=== PATIENT | male | born 1980 | race Caucasian/White ===

== ENCOUNTER 2017-06-22 00:32 | Inpatient (IN) ==
[2017-06-22] MEDS ORDERED: Haloperidol Lactate 5 MG/ML VIAL IM PRN (00:49)
[2017-06-22] MEDS ORDERED: *HR* LORazepam 1 MG TABLET PO PRN (00:49)
[2017-06-22] MEDS ORDERED: Mag Hydrox/Al Hydrox/Simeth 30 ML UDC PO PRN (00:49)
[2017-06-22] MEDS ORDERED: *HR* LORazepam 2 MG/ML VIAL IM PRN (00:49)
[2017-06-22] MEDS ORDERED: hydrOXYzine pamoate 25 MG CAPSULE PO PRN (00:49)
[2017-06-22] MEDS ORDERED: MOM Conc 10 ML UD.LIQ PO PRN (00:49)
[2017-06-22] MEDS ORDERED: Ibuprofen 400 MG TABLET PO PRN (00:49)
[2017-06-22] MEDS ORDERED: traZODone 50 MG TABLET PO PRN (00:49)
[2017-06-22] MEDS: Nicotine 14 MG PATCH.TD24 TD SCH (09:26)
--- NOTE | 2017-06-22 10:55 | Psychiatry History & Physical ---
Date of Encounter: 06/22/17 Time of Encounter: 10:00 History of Present Illness Patient Stated Chief Complaint: Suicidal ideation Medicare Admission Attestation: For traditional Medicare patients the provided hospital inpatient services are reasonable and necessary and in the case of services not specified as inpatient -only under 42 CFR 419.22 (n), that they are appropriately provided as inpatient services in accordance 42 CFR 412.3. For Critical Access Hospital the patient may reasonably be expected to be discharged or transferred to a hospital within 96 hours after admission to the Critical Access Hospital. Admitted From: Hospital to Hospital Transfer ([place] emergency department) History of Present Illness: Mr. Méndez is a 36 year old male admitted from [place] emergency department for suicidal ideation. Patient had for the suicide with plans to run his tractor inside the shed to kill himself with carbon monoxide. Patient reports he started having depressive and suicidal thoughts a year and half ago when his girlfriend broke up with him now they are back together and his son 3 years old is with him and see him every day. Patient was seen by psychiatrists and given medication jeweling this past several months including Zoloft Risperdal and lithium in addition to Keppra for seizure disorder and Tenex and trazodone. Patient feels that without this stressful situation he should feel better but he is not happy and he complained of hypersomnia and low energy and lack of motivation no sense of pleasure and lack of interest in activities. Currently he denied any use of drugs or smoking. He is interested in what to "detox to get off all his medication to find out if he can manage better without medication. I had a long discussion with him regarding tapering off medication safely in the hospital and possible substitution of 1 medication with another to accomplish his treatments goals. He is agreeable to the plan. He denied any past suicide attempts and he had a remote hospitalization in the past. Past Med Surg Social Fam HX - Past Medical History Medical history: migraine, seizures - Past Psychiatric History Psychiatric history: Reports: anxiety, depression, previous psychiatric hospitalization. Denies: prior suicide attempt Past psychiatric history details: Outpatient treatment at [facility] and one hospitalization. Family psychiatric history: Unknown Family History of Suicide: Unknown - Social History Smoking Status: Never smoker Smokeless Tobacco Status: Yes Alcohol use: rarely Drug use: none Medications & Allergies Guanfacine [Tenex] 1 mg PO DAILY 06/21/17 [History] LevETIRAcetam [Keppra] 500 mg PO BID 06/21/17 [History] [place] Carbonate 300 mg PO TID 06/21/17 [History] RisperiDONE [Risperdal] 1 mg PO HS 06/21/17 [History] Sertraline [Zoloft] 150 mg PO DAILY 06/21/17 [History] traZODone [TraZODone] 50 mg PO HS 06/22/17 [History] 3 Allergy/AdvReac Type Severity Reaction Status Date / Time No Known Allergies Allergy Verified 06/21/17 19:30 Review of Systems Psychiatric: Reports: depression, anxiety, abnormal sleep pattern, suicidal ideation, anhedonia Exam - HEENT Head exam IM: Present: atraumatic Eye exam IM: Present: EOMI, normal appearance, PERRL ENT exam IM: Present: normal exam - Neurological Neurological exam: Present: CN II-XII intact - Respiratory Respiratory exam IM: Present: CTAB - GI/Abdominal GI/Abdominal exam IM: Present: normal bowel sounds, soft. Absent: tenderness - Extremities Extremities exam IM: Present: full ROM - Skin Skin exam IM: Present: dry, warm - Constitutional Vitals: Temp Pulse Resp BP 98.4 F 60 18 124/86 06/22/17 09:00 06/22/17 09:00 06/22/17 09:00 06/22/17 09:00 General appearance: age & developmentally appropriate, well-groomed, well- nourished, thin - Musculoskeletal Gait: normal Station: relaxed Strength & Tone: normal for patient - Psychiatric Patient Orientation: Yes Person, Yes Time, Yes Place Level of alertness: Alert Behavior: cooperative, nervous, restless Psychomotor activity: Normal Eye Contact: Maintains Eye Contact Mood Description: Euthymic/stable, Anxious Affect description: congruent with mood, full range Speech Volume: Normal Speech pattern: normal rate, normal rhythm, normal tone, fluent, spontaneous Language & Vocabulary: consistent with education Thought Process: Linear, Goal Oriented Thought Content: Yes Suicidal ideation, No Homicidal ideation, No Overt delusions Perceptual Disturbances: No Auditory hallucinations, No Visual hallucinations Attention Span Ability: Capable of Focused Attention Memory Description: Grossly Intact Patient Reliability: Reliable Historian Fund of knowledge: Yes abstraction ability, Yes average, Yes aware of current events Intelligence Estimate: Average Judgment: Limited Insight: Partial Assessment and Plan (1) Depression Current visit: No Status: Acute Plan: Admit inpatient for safety and stabilization, Close observation, Suicide Precautions per unit protocol, Encourage participation in unit milieu, Group Therapy, Monitor sleep, Monitor appetite Additional Plan: Discussed with patient treatment plan to taper off medication in a stepwise manner and monitor his response to the changes to stabilize his mood and address safety issues. Medication changes as per orders. Risks, benefits, side effects, alternatives discussed w/pt: Yes Patient agreeable to treatment: Yes Estimated Length of Stay (Days): 5 Qualifiers: Depression Type: major depressive disorder Major depression recurrence: recurrent Active/Remission status: currently active Psychotic features: without psychotic features Qualified Code(s): F33.2 - Major depressive disorder, recurrent severe without psychotic features
[2017-06-22] MEDS ORDERED: risperiDONE 1 MG TABLET PO SCH (21:00)
[2017-06-22] MEDS: levETIRAcetam 250 MG TABLET PO SCH (21:25)
[2017-06-22] MEDS: traZODone 50 MG TABLET PO SCH (21:25)
[2017-06-23] MEDS: levETIRAcetam 250 MG TABLET PO SCH ×2 (08:55→21:52)
[2017-06-23] MEDS: Nicotine 14 MG PATCH.TD24 TD SCH (08:56)
--- NOTE | 2017-06-23 11:32 | Psychiatry Progress Note ---
Date of Encounter: 06/23/17 Time of Encounter: 11:00 Subjective Interval history: Patient seen for follow-up. Case discussed with nursing staff. Patient tolerated medication changes and reported good night sleep. He is anxious to be discharged and at the same time he wants medication changes done fast. I educated him repeatedly about safe medication changes plan and he is agreeable. He tell me he is anxious to get started on a new job next week. He reported suicidal ideation to nursing staff. He is anxious and guarded. Review of Systems Psychiatric: Reports: depression, anxiety, abnormal sleep pattern, suicidal ideation, anhedonia Results - Vital Signs Vital Signs: Temp Pulse Resp BP 97.0 F L 67 16 124/76 06/23/17 09:00 06/23/17 09:00 06/23/17 09:00 06/23/17 09:00 Assessment and Plan (1) Depression Current visit: No Status: Acute Risks, benefits, side effects, alternatives discussed w/pt: Yes Patient agreeable to treatment: Yes Qualifiers: Depression Type: major depressive disorder Major depression recurrence: recurrent Active/Remission status: currently active Psychotic features: without psychotic features Qualified Code(s): F33.2 - Major depressive disorder, recurrent severe without psychotic features Consult Discharge Plan - Plan Referrals: [facility] Counseling Psych Services [Outside] - 06/27/17 10:30 am (The above appointment is with Missy for outpatient mental health counseling services. You will also see Js Beltran for outpatient psychiatric assessment and medication management services in the same office, and on the same day, 2017 at 11:45 AM. ) Psychiatry Exam - Constitutional Vitals: Temp Pulse Resp BP 97.0 F L 67 16 124/76 06/23/17 09:00 06/23/17 09:00 06/23/17 09:00 06/23/17 09:00 General appearance: age & developmentally appropriate, well-groomed, well- nourished - Musculoskeletal Gait: normal Station: relaxed Strength & Tone: normal for patient - Psychiatric Patient Orientation: Yes Person, Yes Time, Yes Place Level of alertness: Alert Behavior: cooperative, anxious, guarded Psychomotor activity: Normal Eye Contact: Maintains Eye Contact Mood Description: Euthymic/stable, Anxious Affect description: congruent with mood, constricted Speech Volume: Normal Speech pattern: normal rate, normal rhythm, normal tone, fluent, spontaneous Language & Vocabulary: consistent with education Thought Process: Linear, Goal Oriented Thought Content: Yes Suicidal ideation, No Homicidal ideation, No Overt delusions Perceptual Disturbances: No Auditory hallucinations, No Visual hallucinations Attention Span Ability: Capable of Focused Attention Memory Description: Grossly Intact Patient Reliability: Reliable Historian Fund of knowledge: Yes abstraction ability, Yes aware of current events Intelligence Estimate: Average Judgment: Limited Insight: Partial
[2017-06-23] MEDS: Venlafaxine XR (24 HR) 75 MG CAP.ER.24H PO SCH (11:58)
[2017-06-23] MEDS: traZODone 50 MG TABLET PO SCH (21:52)
[2017-06-24] MEDS: Nicotine 14 MG PATCH.TD24 TD SCH (08:20)
[2017-06-24] MEDS: Venlafaxine XR (24 HR) 75 MG CAP.ER.24H PO SCH (08:21)
[2017-06-24] MEDS: levETIRAcetam 250 MG TABLET PO SCH (08:21)
[2017-06-24 10:15] VITALS: BP 107/75
--- NOTE | 2017-06-24 11:45 | Discharge Summary ---
Date of Encounter: 06/24/17 Time of Encounter: 11:41 Diagnosis - Discharge Diagnosis (1) Depression Status: Acute Qualifiers: Depression Type: major depressive disorder Major depression recurrence: recurrent Active/Remission status: currently active Psychotic features: without psychotic features Qualified Code(s): F33.2 - Major depressive disorder, recurrent severe without psychotic features Medications - Discharge Medications Prescriptions: Venlafaxine XR (24 HR) [Effexor XR] 75 mg PO DAILY #30 cap.er.24h Guanfacine [Tenex] 1 mg PO DAILY 06/21/17 [History] LevETIRAcetam [Keppra] 500 mg PO BID 06/21/17 [History] traZODone [TraZODone] 50 mg PO HS 06/22/17 [History] Sertraline [Zoloft] 50 mg PO DAILY tablet 06/24/17 [Rx] Venlafaxine XR (24 HR) [Effexor XR] 75 mg PO DAILY #30 cap.er.24h 06/24/17 [Rx] 3 Allergy/AdvReac Type Severity Reaction Status Date / Time No Known Allergies Allergy Verified 06/21/17 19:30 Provider Date of admission: 06/22/17 00:32 Primary care physician: PCP NONE Discharging clinician: Deng Moreno Psychiatry Exam - Constitutional Vitals: Temp Pulse Resp BP 98.4 F 86 16 107/75 06/24/17 09:00 06/24/17 09:00 06/24/17 09:00 06/24/17 09:00 General appearance: age & developmentally appropriate, well-groomed, well- nourished - Musculoskeletal Gait: normal Station: relaxed Strength & Tone: normal for patient - Psychiatric Patient Orientation: Yes Person, Yes Time, Yes Place Level of alertness: Alert Behavior: calm, cooperative Psychomotor activity: Normal Eye Contact: Maintains Eye Contact Mood Description: Euthymic/stable Affect description: congruent with mood, full range Speech Volume: Normal Speech pattern: normal rate, normal rhythm, normal tone, fluent, spontaneous Language & Vocabulary: consistent with education Thought Process: Linear, Goal Oriented Thought Content: No Suicidal ideation, No Homicidal ideation, No Overt delusions Perceptual Disturbances: No Auditory hallucinations, No Visual hallucinations Attention Span Ability: Capable of Focused Attention Memory Description: Grossly Intact Patient Reliability: Reliable Historian Fund of knowledge: Yes abstraction ability, Yes aware of current events Intelligence Estimate: Average Judgment: Limited Insight: Partial Hospital Course Hospital course: Mr. Méndez is a 36 year old male admitted for suicidal ideation. For details of the admission please see H&P On the unit the patient was showing an anxiety about his medication, he was interested in reducing his medication and felt they were not effective. I reviewed his medication and work with him on stepwise medication adjustments. Started with discontinue with discontinuation of lithium followed by tapering off Risperdal and reducing Zoloft to 50 mg daily. Started him on Effexor XR 75 mg daily, and he continued on Keppra for seizures. Patient tolerated medication changes and reported improved sleep and improved mood, denies suicidal ideation. He was excited about starting a new job on Sunday and felt ready to be discharged. Prior to discharge patient was medically stable tolerating his medication without any side effects, future oriented and nonsuicidal and showing improved insight into his depression and substance abuse and self-medication. He is discharged in stable condition. His follow- up appointments are scheduled at [facility]. - Time Spent with Patient Total time spent providing and/or coordinating discharge services: Greater than 30 minutes Assessment and Plan - Patient/Caregiver Discharge Instructions Activity: resume usual activities as tolerated Diet: regular diet - Follow up Plan Follow up with: [facility] Counseling Psych Services [Outside] - 06/27/17 10:30 am (The above appointment is with Missy for outpatient mental health counseling services. You will also see Js Beltran for outpatient psychiatric assessment and medication management services in the same office, and on the same day, 2017 at 11:45 AM. ) Functional capacity at discharge: independent ambulation Overall status at discharge: Stable Disposition: Home, Self-Care Quality - Multiple Antipsychotics Patient discharged on 2 or more antipsychotic medications: No Procedures - Procedures Procedures: Medication Management, Crisis Stabilization, Supportive Therapy, Group Therapy, Psychoeducational Therapy
== END 2017-06-24 13:35 | disposition home or self-care (01) | DRG 751 ==
LOC: 1ANU 00:32
PROVIDERS: ADMIT Psychiatry & Neurology Psychiatry; ATTEND Psychiatry & Neurology Psychiatry